=== PATIENT | male | born 1970 | race Caucasian/White ===

== ENCOUNTER 2016-11-11 23:06 | Inpatient (IN) | payer MEDICARE, OTHER ==
[~2016-11-11] VITALS: Ht 175.3 cm; Wt 58.3 kg
[2016-11-11 23:06] VITALS: O2SAT 98
[~2016-11-11 23:06] MED LIST: ASPI325T PO; DOXY100 PO; HYDR-3533 PO
[2016-11-11] MEDS ORDERED: ONDANSETRON HCL 4 MG/2 ML VIAL ONE (23:13)
[2016-11-11] MEDS ORDERED: MORPHINE SULFATE 8 MG/ML INJ ONE (23:13)
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
[2016-11-11 23:24] LABS: I-STAT POTASSIUM 4.4 MMOL/L (3.5-4.9)
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
[2016-11-11 23:30] LABS: AUTOMATED NEUTROPHIL # 5.8 TH/MM3 (1.8-7.7); BASOPHIL # 0.1 TH/MM3 (0-0.2); BASOPHIL % 0.7 % (0.0-2.0); EOSINOPHIL % 0.2 % (0.0-4.0); HEMATOCRIT 38.1 % (39.0-51.0); HEMO FLAGS DIFF FINAL; LYMPH % 13.5 % (9.0-44.0); MEAN CELL VOLUME 90.7 FL (80.0-100.0); MEAN CORPUSCULAR HEMOGLOBIN 30.6 PG (27.0-34.0); MEAN CORPUSCULAR HGB CONC 33.7 % (32.0-36.0); MONO % 7.9 % (0.0-8.0); NEUT % 77.7 % (16.0-70.0); PLATELET COUNT 230 TH/MM3 (150-450); RED CELL DISTRIBUTION WIDTH 14.4 % (11.6-17.2); WHITE BLOOD COUNT 7.4 TH/MM3 (4.0-11.0)
[2016-11-11] MEDS ORDERED: HALOPERIDOL LACTATE 5 MG/ML AMP ONE (23:33)
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
[2016-11-11 23:42] LABS: APTT (PATIENT) 23.6 SEC (24.3-30.1); PROTHROMBIN TIME - PATIENT 10.6 SEC (9.8-11.6)
[2016-11-11] MEDS ORDERED: IOHEXOL 350 MG/ML 10 ML VIAL (for RAD DIAG) IV ONE (23:48)
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
[2016-11-12] VITALS (12 sets, daily range): BP systolic 121–147; BP diastolic 74–90; PULSE 65–89; RESP 16–21; TEMP 96.8–98.9; O2SAT 95–100
[2016-11-12] MEDS ORDERED: CHLORHEXIDINE GLUCONATE 2 % 1 PACK (2 CLOTHS) TOP PRN
[2016-11-12] MEDS ORDERED: MAGNESIUM HYDROXIDE SUSP 30 ML CUP PO PRN
[2016-11-12] MEDS ORDERED: SODIUM CHLORIDE 0.9% FLUSH 5 ML FLUSH IVF PRN
[2016-11-12] MEDS ORDERED: MISCELLANEOUS NURSING INFORMATION XX SCH
[2016-11-12] MEDS ORDERED: SODIUM CHLOR 0.9% 1000 ML INJ 1,000 ML IV ONE
[2016-11-12] MEDS ORDERED: ENALAPRILAT 1.25 MG/ML VIAL IV PRN
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
[2016-11-12] MEDS: HALOPERIDOL LACTATE 5 MG/ML AMP IV PRN ×2 (02:08→04:45)
[2016-11-12] MEDS: CHLORHEXIDINE GLUCONATE 2 % 1 PACK (2 CLOTHS) TOP SCH (04:00)
[2016-11-12] MEDS: ONDANSETRON HCL 4 MG/2 ML VIAL IV PRN ×3 (04:46→21:13)
[2016-11-12 04:53] LABS: AUTOMATED NEUTROPHIL # 8.6 TH/MM3 (1.8-7.7); BASOPHIL % 0.2 % (0.0-2.0); EOSINOPHIL % 0.1 % (0.0-4.0); HEMATOCRIT 36.6 % (39.0-51.0); HEMO FLAGS DIFF FINAL; LYMPH % 6.8 % (9.0-44.0); LYMPHOCYTE # 0.7 TH/MM3 (1.0-4.8); MEAN CELL VOLUME 90.4 FL (80.0-100.0); MEAN CORPUSCULAR HEMOGLOBIN 30.6 PG (27.0-34.0); MEAN CORPUSCULAR HGB CONC 33.8 % (32.0-36.0); MONO % 9.1 % (0.0-8.0); NEUT % 83.8 % (16.0-70.0); PLATELET COUNT 216 TH/MM3 (150-450); RED BLOOD COUNT 4.05 MIL/MM3 (4.50-5.90); RED CELL DISTRIBUTION WIDTH 14.2 % (11.6-17.2); WHITE BLOOD COUNT 10.3 TH/MM3 (4.0-11.0)
[2016-11-12] MEDS: ALPRAZolam 0.25 MG TAB PO PRN ×2 (10:00→21:12)
[2016-11-12] MEDS: DOCUSATE SODIUM 100 MG CAP PO SCH ×3 (10:15→21:12)
[2016-11-12] MEDS: BACITRACIN TOP OINT 15 GM TUBE TOP SCH ×3 (10:16→21:13)
[2016-11-12] MEDS: FOLIC ACID 1 MG TAB PO SCH (10:16)
[2016-11-12] MEDS: MULTIVITAMIN TAB PO SCH (10:16)
[2016-11-12] MEDS: THIAMINE HCL 100 MG TAB PO SCH (10:16)
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
[2016-11-12 14:28] LABS: AMPHETAMINE, URINE NEG (NEG); BARBITURATES, URINE NEG (NEG); COCAINE, URINE POS (NEG)
[2016-11-12] MEDS: FAMOTIDINE 20 MG TAB PO SCH (21:12)
[2016-11-12] MEDS: SUMAtriptan SUCCINATE 25 MG TAB PO PRN (23:57)
[2016-11-12] MEDS: ACETAMINOPHEN 325 MG TAB PO PRN (23:57)
[2016-11-13] VITALS (10 sets, daily range): BP systolic 101–132; BP diastolic 60–85; PULSE 48–95; RESP 18–24; TEMP 97.9–98.6; O2SAT 96–98
[2016-11-13] MEDS ORDERED: HYDROmorphone HCL PF 1 MG/ML VIAL IV PUSH ONE (00:15)
[2016-11-13] MEDS: CHLORHEXIDINE GLUCONATE 2 % 1 PACK (2 CLOTHS) TOP SCH (03:17)
[2016-11-13] MEDS: HALOPERIDOL LACTATE 5 MG/ML AMP IV PUSH PRN ×2 (06:18→08:54)
[2016-11-13] MEDS: METHADONE HCL 10 MG/10 ML ORAL SOLUTION PO SCH (07:10)
[2016-11-13] MEDS: BACITRACIN TOP OINT 15 GM TUBE TOP SCH ×2 (09:00→21:20)
[2016-11-13] MEDS ORDERED: METHADONE HCL 10 MG TAB PO ONE (09:45)
[2016-11-13] MEDS: THIAMINE HCL 100 MG TAB PO SCH (09:45)
[2016-11-13] MEDS: DOCUSATE SODIUM 100 MG CAP PO SCH ×2 (09:45→21:20)
[2016-11-13] MEDS: MULTIVITAMIN TAB PO SCH (09:45)
[2016-11-13] MEDS: FOLIC ACID 1 MG TAB PO SCH (09:45)
[2016-11-13] MEDS ORDERED: INFLUENZA VIRUS VACCINE (QUADRIVALENT) 0.5 ML SYR IM ONE (10:00)
[2016-11-13] MEDS ORDERED: PNEUMOCOCCAL POLYVALENT INJ 25 MCG/0.5 ML SYR IM ONE (10:00)
[2016-11-13 12:17] LABS: HEMATOCRIT 34.4 % (39.0-51.0); MEAN CELL VOLUME 89.6 FL (80.0-100.0); MEAN CORPUSCULAR HEMOGLOBIN 30.8 PG (27.0-34.0); MEAN CORPUSCULAR HGB CONC 34.4 % (32.0-36.0); PLATELET COUNT 187 TH/MM3 (150-450); RED BLOOD COUNT 3.84 MIL/MM3 (4.50-5.90); RED CELL DISTRIBUTION WIDTH 14.3 % (11.6-17.2); REVIEW FLAG FINAL; WHITE BLOOD COUNT 7.5 TH/MM3 (4.0-11.0)
[2016-11-13 12:37] LABS: BICARBONATE 29.8 MEQ/L (21.0-32.0); POTASSIUM 3.9 MEQ/L (3.5-5.1)
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
[2016-11-13] MEDS ORDERED: GADODIAMIDE PF 287 MG/ML 5 ML VIAL (for RAD MRI) IV ONE (15:48)
--- NOTE | 2016-11-13 16:42 | RADRPT ---
EXAM DATE/TIME: 11/13/2016 15:22 [facility] COMPARISON: No previous studies available for comparison. INDICATIONS : Trauma. Neck pain and spasms. CONTRAST: 11 cc Omniscan (gadodiamide) IV MEDICAL HISTORY : None. SURGICAL HISTORY : Fusion, cervical. Vasectomy. ENCOUNTER: Subsequent ACUITY: 2 day PAIN SCORE: 4/10 LOCATION: neck. TECHNIQUE: Multiplanar, multisequence MRI examination of the cervical spine was performed. FINDINGS: There is anterior plate and screw fixation across C5-6-7. There is moderate degenerative disc disease at C3-4-5. Some presumed reactive changes are present at the endplates of C3 and C4, likely degenera tive. No definite evidence for fracture. There are no discrete disc protrusions. There is straightening of the normal cervical lordosis. No si gnificant canal stenosis. No cord compression or cord impingement. No abnormal enhancing lesions iden tified within the canal postcontrast. There is some mild enhancement around degenerative change of th e upper cervical spine and posterior elements. CONCLUSION: 1. Postoperative and degenerative changes as above. No canal stenosis or cord impingement or cord tasha ma. No definite fracture identified. Jose Brown MD on November 13, 2016 at 16:31 Board Certified Radiologist. This report was verified electronically.
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
[2016-11-13] MEDS: ACETAMINOPHEN 325 MG TAB PO PRN (21:20)
[2016-11-13] MEDS: SUMAtriptan SUCCINATE 25 MG TAB PO PRN (21:20)
[2016-11-13] MEDS: FAMOTIDINE 20 MG TAB PO SCH (21:20)
[2016-11-14] VITALS: BP 103/64; PULSE 45; RESP 21; TEMP 97.9; O2SAT 96
[2016-11-14 02:00] VITALS: BP 124/69; PULSE 54; RESP 17; TEMP 97.7; O2SAT 94
[2016-11-14] MEDS: CHLORHEXIDINE GLUCONATE 2 % 1 PACK (2 CLOTHS) TOP SCH (04:00)
[2016-11-14] MEDS: ACETAMINOPHEN 325 MG TAB PO PRN (05:16)
[2016-11-14 08:00] VITALS: BP 130/68; PULSE 67; RESP 18; TEMP 98.2; O2SAT 97
[2016-11-14] MEDS: METHADONE HCL 10 MG/10 ML ORAL SOLUTION PO SCH (08:17)
[2016-11-14] MEDS: THIAMINE HCL 100 MG TAB PO SCH (08:18)
[2016-11-14] MEDS: FOLIC ACID 1 MG TAB PO SCH (08:18)
[2016-11-14] MEDS: DOCUSATE SODIUM 100 MG CAP PO SCH (08:18)
[2016-11-14] MEDS: MULTIVITAMIN TAB PO SCH (08:18)
[2016-11-14] MEDS: BACITRACIN TOP OINT 15 GM TUBE TOP SCH (10:51)
[2016-11-14 12:00] VITALS: BP 142/79; PULSE 65; RESP 18; TEMP 98; O2SAT 97
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
[2016-11-14 16:00] VITALS: BP 145/84; PULSE 56; RESP 20; TEMP 97.9; O2SAT 97
== END 2016-11-14 16:00 | disposition home or self-care (01) | DRG 965 ==
LOC: NEPI 23:06 → NEDA 23:41 → EDBD 23:41 → MERGE 23:41 → N03A 23:55 → N04A 11-14 02:01
PROVIDERS: ADMIT Surgery; ATTEND Surgery
DX: S06.6X9A Traumatic subarachnoid hemorrhage with loss of consciousness of unspecified duration, initial encounter (principal); S27.0XXA Traumatic pneumothorax, initial encounter; R40.2421 Glasgow coma scale score 9-12, in the field [EMT or ambulance]; S40.211A Abrasion of right shoulder, initial encounter; S05.11XA Contusion of eyeball and orbital tissues, right eye, initial encounter; S80.211A Abrasion, right knee, initial encounter; M54.2 Cervicalgia; G89.29 Other chronic pain; V28.4XXA Motorcycle driver injured in noncollision transport accident in traffic accident, initial encounter; Y92.410 Unspecified street and highway as the place of occurrence of the external cause; Z98.1 Arthrodesis status
CPT/HCPCS: 70450; 71010; 71260; 72125; 72128; 72156; 72170; 74177; 80048; 80307; 82435; 82565; 82947; 84132; 84295; 84520; 85025; 85027; 85610; 85730; 86850; 86900; 86901; 87641; 90471; 96374; 96375; 99291; A9579; G0390; J1170; J1630; J2270; J2405; J7030; L0150; L0172; Q9967

== ENCOUNTER 2017-01-10 19:15 | Emergency (ER) | payer OTHER ==
[~2017-01-10] VITALS: Ht 177.8 cm; Wt 68.0 kg
[2017-01-10 19:16] VITALS: BP 130/67; PULSE 86; RESP 16; TEMP 98.3; O2SAT 97
[2017-01-10] MEDS ORDERED: TRAZ150T75 PO (19:46)
[2017-01-10] MEDS ORDERED: ASPI1TAB69 PO (19:46)
[2017-01-10] MEDS ORDERED: oxyCODONE/ACETAMINOPHEN 5 MG/325 MG TAB PO ONE (20:00)
[2017-01-10] MEDS ORDERED: SODIUM CHLORIDE 0.9% FLUSH 5 ML FLUSH IVF PRN (20:00)
[2017-01-10 20:06] LABS: AUTOMATED NEUTROPHIL # 3.3 TH/MM3 (1.8-7.7); BASOPHIL % 0.6 % (0.0-2.0); EOSINOPHIL # 0.1 TH/MM3 (0-0.4); EOSINOPHIL % 2.4 % (0.0-4.0); HEMATOCRIT 37.1 % (39.0-51.0); HEMO FLAGS DIFF FINAL; LYMPH % 23.7 % (9.0-44.0); LYMPHOCYTE # 1.2 TH/MM3 (1.0-4.8); MEAN CELL VOLUME 89.6 FL (80.0-100.0); MEAN CORPUSCULAR HEMOGLOBIN 31.3 PG (27.0-34.0); MEAN CORPUSCULAR HGB CONC 34.9 % (32.0-36.0); MONO % 10.4 % (0.0-8.0); NEUT % 62.9 % (16.0-70.0); PLATELET COUNT 199 TH/MM3 (150-450); RED BLOOD COUNT 4.15 MIL/MM3 (4.50-5.90); WHITE BLOOD COUNT 5.3 TH/MM3 (4.0-11.0)
--- NOTE | 2017-01-10 20:11 | RADRPT ---
EXAM DATE/TIME: 01/10/2017 20:02 [facility] COMPARISON: No previous studies available for comparison. INDICATIONS : Dizziness with syncope x2 days. RADIATION DOSE: 34.10 CTDIvol (mGy) MEDICAL HISTORY : Hypertension. SURGICAL HISTORY : Cervical fusion. ENCOUNTER: Initial ACUITY: 2 days PAIN SCALE: 0/10 LOCATION: cranial TECHNIQUE: Multiple contiguous axial images were obtained of the head. Using automated exposure control and adj ustment of the mA and/or kV according to patient size, radiation dose was kept as low as reasonably a chievable to obtain optimal diagnostic quality images. FINDINGS: CEREBRUM: The ventricles are normal for age. No evidence of midline shift, mass lesion, hemorrhage or acute in farction. No extra-axial fluid collections are seen. POSTERIOR FOSSA: The cerebellum and brainstem are intact. The 4th ventricle is midline. The cerebellopontine angle i s unremarkable. EXTRACRANIAL: The visualized portion of the orbits is intact. SKULL: The calvaria is intact. No evidence of skull fracture. CONCLUSION: Normal examination. Jimmy Duran MD on January 10, 2017 at 20:09 Board Certified Radiologist. This report was verified electronically.
--- NOTE | 2017-01-10 20:19 | RADRPT ---
EXAM DATE/TIME: 01/10/2017 20:02 [facility] COMPARISON: CT CERVICAL SPINE W/O CONTRAST, November 11, 2016, 23:20. INDICATIONS : Dizziness and syncope with neck pain x2 days. RADIATION DOSE: 13.18 CTDIvol (mGy) MEDICAL HISTORY : Hypertension. SURGICAL HISTORY : Cervical fusion ENCOUNTER: Initial ACUITY: 2 days PAIN SCALE: 3/10 LOCATION: neck TECHNIQUE: Volumetric scanning of the cervical spine was performed. Multiplanar reconstructions in the sagittal, coronal and oblique axial planes were performed. Using automated exposure control and adjustment o f the mA and/or kV according to patient size, radiation dose was kept as low as reasonably achievable to obtain optimal diagnostic quality images. FINDINGS: The patient has had previous intervertebral fusion at C5-C7. No prevertebral soft tissue swelling. Th ere is multilevel anterior osteophyte formation with mild disc space narrowing at C3-4, C4-5, C7-T1 a nd T1-2. No compression deformities. There is no acute fracture or listhesis. There is no canal steno sis. CONCLUSION: No acute disease. Jimmy Duran MD on January 10, 2017 at 20:16 Board Certified Radiologist. This report was verified electronically.
[2017-01-10 20:31] LABS: ANION GAP 6 MEQ/L (5-15); AST (GOT) 16 U/L (15-37); BICARBONATE 30.6 MEQ/L (21.0-32.0); BLOOD UREA NITROGEN 16 MG/DL (7-18); CHLORIDE 104 MEQ/L (98-107); GLOMERULAR FILTRATION RATE 69 ML/MIN (>89); POTASSIUM 3.2 MEQ/L (3.5-5.1); SODIUM (NA) 141 MEQ/L (136-145)
[2017-01-10 20:35] LABS: ALKALINE PHOSPHATASE 79 U/L (45-117); ALT (GPT) 18 U/L (12-78); CREATINE KINASE 116 U/L (39-308); TOTAL BILIRUBIN ADULT 0.3 MG/DL (0.2-1.0)
[2017-01-10 20:48] LABS: CKMB LESS THAN 0.5 NG/ML (0.5-3.6)
--- NOTE | 2017-01-10 20:54 | RADRPT ---
EXAM DATE/TIME: 01/10/2017 20:28 [facility] COMPARISON: No previous studies available for comparison. INDICATIONS : Right hand pain for the past three days. No prior trauma. MEDICAL HISTORY : None. SURGICAL HISTORY : None. ENCOUNTER: Initial ACUITY: 3 days PAIN SCORE: 5/10 LOCATION: Right wrist. FINDINGS: Three view examination of the right hand demonstrates no soft tissue swelling, dislocation, or fractu re. The carpal bones appear intact. The interphalangeal and metacarpophalangeal joints are intact. Bony mineralization is normal. CONCLUSION: Unremarkable examination of the right hand. Jimmy Duran MD on January 10, 2017 at 20:52 Board Certified Radiologist. This report was verified electronically.
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
[2017-01-10 21:57] VITALS: O2SAT 97
== END 2017-01-10 22:03 | disposition home or self-care (01) ==
LOC: NEPC 19:15
DX: R51 Headache (principal)
CPT/HCPCS: 70450; 72125; 73130; 80053; 82550; 82552; 84484; 85025